=== PATIENT | male | born 1980 | race African-American/Black ===

== ENCOUNTER 2022-08-08 22:18 | Emergency (ER) | payer MEDICAID, OTHER | END 2022-08-08 22:53 | disposition left against medical advice (07) | LOC: ER 22:18 | DX: Z53.21 Procedure and treatment not carried out due to patient leaving prior to being seen by health care provider (principal) ==

== ENCOUNTER 2024-12-24 06:09 | Emergency (ER) | payer MEDICAID ==
[~2024-12-24] VITALS: Ht 182.9 cm; Wt 69.0 kg
[2024-12-24 06:36] VITALS: O2SAT 100
[2024-12-24] MEDS ORDERED: SULF1TAB47 MT (08:27)
[2024-12-24] MEDS ORDERED: CEPH500T MT (08:27)
[2024-12-24] MEDS ORDERED: IBUP-2029 MT (08:27)
[2024-12-24] MEDS: KETOROLAC 30MG/ML VIAL IM ONE (08:45)
[2024-12-24 08:51] VITALS: BP 144/96; PULSE 89; RESP 18; TEMP 36.8; O2SAT 100
== END 2024-12-24 08:53 | disposition home or self-care (01) ==
LOC: ER 06:09
DX: L02.415 Cutaneous abscess of right lower limb (principal); L03.115 Cellulitis of right lower limb
CPT/HCPCS: 10060; 96372; 99284; J1885; Z7610; 99283